=== PATIENT | female | born 1990 | race Caucasian/White ===

== ENCOUNTER 2020-07-16 18:54 | Emergency (ER) | payer OTHER ==
[~2020-07-16] VITALS: Ht 157.5 cm; Wt 49.4 kg
[2020-07-16] MEDS ORDERED: ACETAMINOPHEN 325 MG TAB PO ONE (19:30)
[2020-07-16] MEDS ORDERED: SODIUM CHLORIDE 0.9% 1000ML 1,000 ML IV SCH (19:30)
[2020-07-16] MEDS ORDERED: ACETAMINOPHEN 325 MG TAB ONE (19:47)
[2020-07-16] MEDS ORDERED: SODIUM CHLORIDE 0.9% 1000ML 1,000 ML ONE (19:47)
[2020-07-16] MEDS ORDERED: CEFTRIAXONE SOD 1 GM VIAL ONE (19:51)
[2020-07-16] MEDS ORDERED: CEFTRIAXONE SOD 1 GM/NS 50 ML 50 ML IV ONE (20:00)
--- NOTE | 2020-07-16 21:22 | Emergency Department Note ---
History of Present Illnes History of Present Illness Chief Complaint: General Medicine Complaints History of Present Illness This is a 30 year old female, with no significant past medical history, who presents with a 5 day history of intermittent fevers up to 102, along with right-sided low back pain radiating to the right lower abdomen. Patient describes the pain as a "crampy," intermittent pain that seems to have worsened over the past 24 hours. Patient states that 2 weeks ago, she had symptoms of dysuria and urinary frequency, which lasted 3 days, and resolved without intervention. Patient denies any current dysuria, frequency, or urgency, but she states that she has had a "foul-smelling urine" for the past several days. She has had a history of UTIs in the past, with last one being a little over year ago, during her last . She states she has never had to be hospitalized for a kidney infection. She denies any nausea, vomiting, or diarrhea. She has had chills, but the fever, as well as body aches. Patient denies any upper respiratory symptoms, chest pain, shortness of breath, and she has had no known sick contacts, including no known exposure to Covid 19. 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 Onset (how long ago): day(s) (5) Location: right low back and right lower abdomen Quality: "crampy" Radiation: Reports abdomen (right lower abdomen;) Severity: moderate Onset quality: gradual Duration (how long): day(s) (5) Timing of current episode: intermittent Progression: worsening Chronicity: new Context: Denies recent surgery, Denies trauma/injury Relieving factors: medication (Tylenol and Motrin offered some temporary relief of pain, though not complete;) Exacerbating factors: none Associated symptoms: Reports fever/chills; Denies chest pain, Denies cough, Denies headaches, Denies malaise, Denies nausea/vomiting, Denies shortness of breath, Denies weakness Treatments prior to arrival: NSAID (400 mg Ibuprofen, 2 hours [employer]) Risk factors: Previous UTI, with recent, untreated symptoms; Past Medical/Family History Physician Review I have reviewed the patient's past medical and family history. Any updates have been documented here. Past Medical History Recent Fever: Yes Clinical Suspicion of Infectio: Yes New/Unexplained Change in Ment: No Past Medical History: None Past Surgical History: None Social History Smoking Cessation: Never Smoker Alcohol Use: Occasional Any Illegal Drug Use: Yes (Marijuana) TB Exposure/Symptoms: No Physically hurt or threatened: No Family History Family history of heart diseas: No Other Last Tetanus: with pregnancies Any Pre-Existing Lines (PICC,: No Review of Systems Review of Systems Constitutional: Reports chills, Reports fever; Denies malaise, Denies weakness EENTM: Reports no symptoms Cardiovascular: Denies chest pain, Denies edema Respiratory: Denies cough, Denies dyspnea Gastrointestinal: Reports abdominal pain (right sided, lower abdomen;); Denies constipation, Denies diarrhea, Denies nausea, Denies vomiting Genitourinary: Reports other (foul smelling urine;); Denies discharge, Denies dysuria, Denies frequency Musculoskeletal: Reports back pain (right sided low back/flank;) Integumentary: Denies change in color, Denies rash Neurological: Denies headache, Denies weakness Endocrine: Reports no symptoms Hematological/Lymphatic: Reports no symptoms Review of other systems: All other systems negative Physical Exam Related Data Allergies: Coded Allergies: No Known Allergies (Unverified , 07/16/20) Triage Vital Signs Vital Signs Date Time Temp Pulse Resp B/P (MAP) Pulse Ox O2 Delivery O2 Flow Rate FiO2 07/16/20 19:10 102.5 117 18 150/90 98 Room Air Vital signs reviewed: Yes Physical Exam CONSTITUTIONAL Constitutional: Present well-developed, Present well-nourished; Absent distressed, Absent ill appearing HENT HENT: Present normocephalic, Present atraumatic, Present oropharynx clear/moist, Present nose normal EYES Eyes: Reports PERRL, Reports conjunctivae normal NECK Neck: Present ROM normal PULMONARY Pulmonary: Present effort normal, Present breath sounds normal CARDIOVASCULAR Cardiovascular: Present regular rhythm, Present heart sounds normal, Present capillary refill normal, Present normal rate; Absent murmur GASTROINTESTINAL Abdominal: Present soft, Present nontender, Present bowel sounds normal, Present right CVA tenderness (mild;); Absent tender (no focal abdominal ttp; ), Absent guarding GENITOURINARY Genitourinary: Present exam deferred SKIN Skin: Present warm, Present dry MUSCULOSKELETAL Musculoskeletal: Present ROM normal; Absent tenderness, Absent swelling NEUROLOGICAL Neurological: Present alert, Present oriented x 3, Present no gross motor or sensory deficits PSYCHOLOGICAL Psychological: Present mood/affect normal, Present judgement normal Results Laboratory Lab results reviewed: Yes Laboratory comments CBC - nl except for WBC = 14.3, H/H = 11.4/35.7; CMP - nl except for K= 3.4; UPT - negative; UA - nl except for margie - small, ket - 80 mg/dl, blo -mod, pro 10 mg/dl, Uro = 2.0, Nit - negative; Jayden - large; Urine Culture - sent and pending; Assessment & Plan Medical Decision Making MDM - Pt is fever free and pain free, following dose of Tylenol 975 mg po x 1; - Take all antibiotics, as directed. - Increase fluid intake, especially water, at least 1 gallon per 24 hours. - For pain, you may take Extra Strength Tylenol 500 mg - 2 tablets every 4 hours as needed. You have also been given a prescription of Tylenol with codeine. Please DO NOT take both forms of Tylenol, together. You may alternate this with Ibuprofen/Advil 200 mg3 tablets every 6 hours as needed for pain. - Return to the emergency room if your symptoms worsen, or if you develop vomiting with inability to keep her medications down, worsening pain, or fever that is persistent after being on antibiotics for at least 48 hours. [facility] Aware [place] Website reviewed - no history of any controlled substances prescribed; Assessment & Plan Final Impression: (1) Pyelonephritis (2) Leukocytosis (3) Flank pain (4) Fever Depart Disposition: HOME, SELF-CARE Last Vital Signs Date Time Temp Pulse Resp B/P (MAP) Pulse Ox O2 Delivery O2 Flow Rate FiO2 07/16/20 21:10 99.7 83 16 125/70 99 07/16/20 19:10 Room Air Home Meds Active Scripts Acetaminophen/Codeine* (TYLENOL # 3*) 1 Ea Tab, 1-2 TAB PO Q6H for pain, #20 TAB 0 Refills DO NOT take and drive or operate machinery. Prov:CHRISTOPHER HENDRICKSON MD 07/16/20 Ondansetron (ONDANSETRON ODT) 8 Mg Tab.rapdis, 4 MG PO Q6H for nausea and vomiting, #20 TAB 0 Refills Prov:CHRISTOPHER HENDRICKSON MD 07/16/20 Ciprofloxacin Hcl (CIPRO) 500 Mg Tablet, 500 MG PO BID for infection for 10 Days, #20 TAB 0 Refills Prov:CHRISTOPHER HENDRICKSON MD 07/16/20 Medications in the ED Acetaminophen 975 mg ONCE ONCE PO Last administered on 07/16/20at 19:40; Admin Dose 975 MG; Start 07/16/20 at 19:30; Stop 07/16/20 at 19:31; Status DC Sodium Chloride 1,000 ml @ 0 mls/hr Q0M IV Last administered on 07/16/20at 19 :40; Admin Dose 999 MLS/HR; Start 07/16/20 at 19:30; Stop 08/15/20 at 19:29 Acetaminophen 975 mg STK-MED ONCE .ROUTE ; Start 07/16/20 at 19:47; Stop 07/16/20 at 19:41; Status DC Sodium Chloride 1,000 ml @ ud STK-MED ONCE .ROUTE ; Start 07/16/20 at 19:47; St op 07/16/20 at 19:41; Status DC Ceftriaxone Sodium 1 gm STK-MED ONCE .ROUTE ; Start 07/16/20 at 19:51; Stop 07/16/20 at 19:45; Status DC Ceftriaxone Sodium 50 ml @ 100 mls/hr ONCE ONCE IV Last administered on 07/16/20at 19:45; Admin Dose 100 MLS/HR; Start 07/16/20 at 20:00; Stop 07/16/20 at 20:29; Status CHRISTOPHER MERCER MD Jul 16, 2020 21:22
[2020-07-16] MEDS ORDERED: CIPRO500 MG PO (21:23)
[2020-07-16] MEDS ORDERED: ONDANSETRON ODT8 MG PO (21:25)
[2020-07-16] MEDS ORDERED: TYLENOL # 31 EA PO (21:26)
== END 2020-07-16 21:42 | disposition home or self-care (01) ==
LOC: FSED 19:40
DX: R50.9 Fever, unspecified (principal); N12 Tubulo-interstitial nephritis, not specified as acute or chronic; R10.30 Lower abdominal pain, unspecified; M54.5 Low back pain; D72.829 Elevated white blood cell count, unspecified
CPT/HCPCS: 80053; 81003; 81025; 85025; 87086; 87186; 99283; J0696; J7030